=== PATIENT | male | born 1940 | race Caucasian/White ===

== ENCOUNTER → 2018-05-26 | Outpatient (CLI) | payer OTHER | END | disposition home or self-care (01) | LOC: RAH 15:06 | PROVIDERS: ATTEND Internal Medicine | DX: I10 Essential (primary) hypertension (principal) | CPT/HCPCS: 71046 ==

== ENCOUNTER → 2019-11-16 | Outpatient (CLI) | payer OTHER | END | disposition home or self-care (01) | LOC: RAH 09:28 | PROVIDERS: ATTEND Internal Medicine | DX: M53.3 Sacrococcygeal disorders, not elsewhere classified (principal); M47.816 Spondylosis without myelopathy or radiculopathy, lumbar region | CPT/HCPCS: 72220 ==

== ENCOUNTER 2023-04-20 17:07 | Emergency (ER) | payer OTHER ==
[~2023-04-20] VITALS: Ht 167.6 cm; Wt 60.3 kg
[2023-04-20 17:11] VITALS: BP 157/86; PULSE 80; RESP 16
== END 2023-04-20 20:43 | disposition home or self-care (01) ==
LOC: EDH 17:07
DX: S42.292A Other displaced fracture of upper end of left humerus, initial encounter for closed fracture (principal); W18.39XA Other fall on same level, initial encounter; Y93.89 Activity, other specified; Y92.89 Other specified places as the place of occurrence of the external cause; Y99.8 Other external cause status
CPT/HCPCS: 99282

== ENCOUNTER → 2023-04-20 | Outpatient (CLI) | payer OTHER | END | disposition home or self-care (01) | LOC: RAH 16:06 | PROVIDERS: ATTEND Internal Medicine | DX: M89.8X1 Other specified disorders of bone, shoulder (principal); M19.032 Primary osteoarthritis, left wrist; M19.012 Primary osteoarthritis, left shoulder; M25.512 Pain in left shoulder; M25.532 Pain in left wrist | CPT/HCPCS: 73000; 73030; 73100 ==

== ENCOUNTER → 2024-02-14 | Outpatient (CLI) | payer OTHER ==
--- NOTE | 2024-02-14 16:03 | HMCIMG ---
HIP UNILAT 2-3VW RIGHT REASON: RIGHT HIP PAIN COMPARISON: None TECHNIQUE: 3 views were obtained of the pelvis and right hip. FINDINGS: There are normal-appearing bones of the pelvis. There are no fractures. There is moderate to marked hip joint space narrowing consistent with osteoarthritis. There are no fractures. Soft tissues appear unremarkable. IMPRESSION: 1. 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
== END | disposition home or self-care (01) ==
LOC: RAH 14:15
PROVIDERS: ATTEND Internal Medicine
DX: M16.11 Unilateral primary osteoarthritis, right hip (principal); M25.851 Other specified joint disorders, right hip; M25.551 Pain in right hip
CPT/HCPCS: 73502